=== PATIENT | male | born 1960 | race Caucasian/White ===

== ENCOUNTER 2017-01-05 09:53 | Emergency (ER) | payer OTHER ==
[~2017-01-05] VITALS: Ht 157.5 cm; Wt 70.0 kg
[2017-01-05 09:55] VITALS: Ht 157.5 cm; Wt 70.0 kg
[2017-01-05] MEDS ORDERED: ACETAMINOPHEN 325 MG TAB PO ONE (11:00)
--- NOTE | 2017-01-05 11:36 | RADRPT ---
PROCEDURE: CT brain without contrast CLINICAL INDICATION: Headaches TECHNIQUE: CT of the brain without contrast performed on a multidetector CT scanner, with multiplan ar reformats. One or more of the following dose reduction techniques were used: Automated exposure control, adjustment in mA and / or kV according to patient size, use of iterative reconstructive jane hnique. CTDIvol = 45 mGy; DLP = 630 mGy-cm. COMPARISON: None available FINDINGS: No acute intracranial hemorrhage is identified. No extra-axial fluid collection is seen. There is no mass effect. No midline shift is identified. Ventricles and sulci are mildly enlarged compatible with generalized volume loss. There are minimal areas of hypodensity in the periventricular - deep white matter which are nonspeci fic but suggestive of chronic small vessel ischemic changes. Evans-white differentiation is preserve d. Atherosclerotic calcifications of the intracranial internal carotid arteries are noted. Osseous structures are unremarkable. Mastoid air cells and imaged paranasal sinuses grossly clear. IMPRESSION: 1. No evidence of acute intracranial pathology. 2. Mild volume loss, with minimal chronic small vessel ischemic changes. RPTAT: VV .Julio Salgado MD, MD Date Time Electronically viewed and signed by .Julio Salgado MD, on 01/05/2017 11:36 .O/
[2017-01-05] MEDS ORDERED: BUTA1CAP38 PO (11:39)
--- NOTE | 2017-01-05 11:42 | ERD ---
ER Documentation Chief Complaint Date/Time DATE: 01/05/17 TIME: 11:41 Chief Complaint HAS SINCE WEDNESDAY HPI This 56-year-old male presents with a right-sided headache for last 4 days. Denies history of trauma or illnesses such as fevers, cough, visual changes, vomiting. Denies any inciting events. Pain is primarily in the right occipital area. Patient has a history of HIV with undetectable viral loads. ROS All systems reviewed and are negative except as per history of present illness. Medications Home Meds Active Scripts Dvtyvtduan-Rxtbvyijfanrg-Humxivdo* (Fioricet*) 50-300-40 Mg Capsule, 1 CAP PO Q4H Y for HEADACHE, #15 CAP Prov:ANGELO MOREL MD 01/05/17 PMhx/Soc Medical and Surgical Hx: pt denies Medical Hx, pt denies Surgical Hx Hx Alcohol Use: No Hx Substance Use: No Hx Tobacco Use: No Physical Exam Vitals Vital Signs Date Time Temp Pulse Resp B/P Pulse Ox O2 Delivery O2 Flow Rate FiO2 01/05/17 09:55 97.8 61 18 122/61 99 Physical Exam Const: [], Pleasant, [id number]. Head: Atraumatic Eyes: Normal Conjunctiva. Eyes are PERRLA and extraocular movements intact. ENT: Normal External Ears, Nose and Mouth. Neck: Full range of motion..~ No meningismus. Possibly mild tenderness at C1 right paraspinous muscles. Resp: Clear to auscultation bilaterally Cardio: Regular rate and rhythm, no murmurs Abd: Soft, non tender, non distended. Normal bowel sounds Skin: No petechiae or rashes Back: No midline or flank tenderness Ext: No cyanosis, or edema Neur: Awake and alert. Normal gait. No appreciable focal neurologic deficits. No cerebellar signs. Psych: Normal Mood and Affect Results 24 hrs Current Medications Medications (Trade) Dose Ordered Sig/Aminta Route PRN Reason Start Time Stop Time Status Last Admin Dose Admin Acetaminophen (Tylenol Tab) 650 mg ONCE ONCE PO 01/05/17 11:00 01/05/17 11:01 DC Procedures/MDM Given uncertain cause of headache CT brain was performed which shows no acute findings. Patient was given Tylenol for pain. Patient will be treated with Fioricet at home. Patient presents with headache of uncertain etiology without signs of mass-effect, bleeding, meningitis, neurologic deficit. He is advised to return for any worsening symptoms of headache as directed after instructions with primary care doctor this week. Departure Diagnosis: Primary Impression: Headache Headache type: unspecified Headache chronicity pattern: unspecified pattern Intractability: not intractable Qualified Code: R51 - Nonintractable headache, unspecified chronicity pattern, unspecified headache type Condition: Stable Patient Instructions: Headache, Unspecified Additional Instructions: CT normal. Recheck with primary doctor or return for fevers, vomiting, new worsening symptoms. ANGELO MOREL MD Jan 05, 2017 11:42
== END 2017-01-05 12:00 | disposition home or self-care (01) ==
LOC: FTE 09:53
DX: R51 Headache (principal)
CPT/HCPCS: 70450